=== PATIENT | female | born 1950 | race Caucasian/White ===

== ENCOUNTER → 2025-02-12 | Outpatient (CLI) | payer OTHER, SELFPAY ==
--- NOTE | 2025-02-12 12:48 | RAD_ITS ---
EXAM: X-ray lumbar spine 2 or three views CLINICAL HISTORY: Back pain COMPARISON: None available TECHNIQUE: AP and lateral views of the lumbosacral spine FINDINGS: 5 non rib-bearing lumbar vertebral type bodies. Moderate appearing leftward curvature of the lumbar spine with apex at L2-3. No fracture or malalignment. A oyuv-[id number] appearing disc space narrowing suggested at L4-5. Surgical clips are seen over the right abdomen possible previous cholecystectomy, correlate with history. RAD/Lumbar Spine 2 or 3 Views IMPRESSION: Moderate appearing leftward curvature of the lumbar spine with apex at L2-3. No fracture or malalignment. A [id number]-[id number] appearing disc space narrowing suggested at L4-5. Reading Location: [id number]
== END | disposition home or self-care (01) ==
LOC: RAD 12:42
PROVIDERS: Referring Provider Anesthesiology Pain Medicine; Visit Provider Anesthesiology Pain Medicine
DX: M54.9 Dorsalgia, unspecified (principal)
CPT/HCPCS: 72100

== ENCOUNTER 2025-05-02 09:30 | Outpatient (RCR) | payer MEDICARE, SELFPAY ==
--- NOTE | 2025-02-24 19:43 | HP.PTEVAL ---
Patient's Visit Information Visit Information Visit Information: KOBE BLEVINS is a 74 year old F referred to Physical Therapy by Dr. Betsy Orozco MD with a diagnosis of BACK PAIN. Date of Evaluation: 02/24/25 Physical Therapist: Supriya Mena PT, Cert MDT Visit Plan Frequency: 2-3x /Week Duration: 4-6 Weeks Plan: POSTURE CORRECTION/STRENGTHENING, INSTRUCTION IN APPROPRIATE BODY MECHANICS AND ACTIVITY MODIFICATIONS. DLS STARTING WITH A NEUTRAL SPINE PROGRESSING ROM TOLERATED. JUAN LE ROM, STRETCHING AND STRENGTHENING. HEP INSTRUCTION. Subjective Subjective: Work/Leisure: RETIRED. Present symptoms: JUAN LOW BACK PAIN R>L. Present since: CHRONIC - YEARS BUT INCREASED LAST SUMMER WITH GARDENING. Pain Scale: WORST 8/10, LEAST 2/10 Currently: 2/10 Is it getting better, worse or staying the same: STAYING THE SAME Commenced as a result of: NO APPARENT REASON Symptoms at onset: LOW BACK PAIN. Worse: PROLONG STANDING, WALKING, LYING, VACUUMING, MOPPING AND SWEEPING Better: HEATING, IBUPROFEN, ASPIRIN AND SITTING IN RECLINER Disturbed sleep: YES Previous history/Previous treatment: SI JT INJECTIONS APRIL AND AUG 2024. RADIOFREQUENCY TREATMENT AUG 2024. INCREASED BACK PAIN WITH PHYSICAL THERAPY 2023 FOR R WRIST AND L KNEE AFTER FALL MAY 2024. NO BACK SURGERY. SELF TREATMENT OF BACK PRIOR TO 2023. Treatment this episode: [place] DR. OROZCO 02/20/25 WITH SOME BENEFIT. Coughing/sneezing/straining: NO EFFECT ON PAIN THAT PATIENT IS AWARE OF. Gait: TIME AND DISTANCE LIMITED DUE TO BACK PAIN. [place]OB[place]Y IN THE [place] - USING [facility] IN THE [facility] TO WALK DOG DOWN THE [place] STARTING THIS WINTER. Bowel or Bladder Dysfunction: NO Accidents: FELL IN BATH TUB MAY 2024 AND HURT R WRIST AND L KNEE TREATED WITH PHYSICAL THERAPY IN [place] 20[place]. Unexplained weight loss: NO Imaging: RECENT LUMBAR X-RAY [facility]: IMPRESSION: Moderate appearing leftward curvature of the lumbar spine with apex at L2-3. No fracture or malalignment. A tsuu-fy-[id number] appearing disc space narrowing suggested at L4-5. PMH/Recent major surgery: HTN, HYPOTHYROIDISM Objective Objective: Sitting/Standing Posture: STANDING: R SHLD LEVEL LOWER THAN L AND R ILIAC CREST HIGHER THAN L. ANTERIOR PELVIC TILT. SLOUCHED IN SITTING. Other Observations: INDEP GAIT INTO PT WITHOUT ANY AD OR LOB BUT GAIT AND TRANSFERS ARE SLOW AND GUARDED. ABLE TO TRANSFER INDEP;LY FROM SIT TO STAND WITHOUT UE ASSIST BUT DIFFICTULT AND PATIENT C/O INCREASED LBP. Sensory deficit: JUAN LE LIGHT TOUCH SENSATION GROSSLY INTACT AND SYMMETRICAL ROM deficit: JUAN LE HIP FLEXOR, HS AND CALF TIGHTNESS. Motor deficit: R HIP 4-/5, KNEE 4/5, ANKLE 5/5. L HIP 4/5, KNEE 5/5, ANKLE 5/5. Reflexes: UNABLE TO ELICIT JUAN LE DTR'S. Dural Signs: POSITIVE R LE AND NEGATIVE L LE. Lumbar mvmt loss: flex - MOD ext - MELVINA R SG - MELVINA L SG - MOD Core strength: POOR Palpation: NO ACUTE TENDERNESS WITH PALPATION OF LOWER THOROCIC, LUMBAR OR HIP REGIONS WITH LIGHT PALPATION TODAY. Balance/Special Test Scores Oswestry Low Back Score: 22 Goals Goal 1:: DECREASE C/O LOW BACK PAIN BY AT LEAST 50% TO EASE ADL'S Goal Time Frame: 4-6 Weeks Goal 2:: IMPROVE LIFTING, WALKING, SITTING, STANDING, SLEEP, TRAVEL AND HOMEMAKING FUNCTION WITH AT LEAST A 5 POINT IMPROVEMENT IN LUMBAR OSWESTRY SCORE. Goal Time Frame: 4-6 Weeks Goal 3:: INSTRUCT IN PROPHYLAXIS. Goal Time Frame: 4-6 Weeks Rehabilitation Potential Physical Therapy Diagnosis: CORE AND LE STIFFNESS AND WEAKNESS Rehabilitation Potential: Good Anticipated Interventions Patient/Client Instruction: Educate patient on: Condition, Plan of Care and Risk Factors For the Purpose of:: To improve self management Therapeutic Exercise to Include: Strength training, Body mechanics, Neuromotor development, In an aquatic setting and Dynamic Lumbar Stabilization For the Purpose of:: To decrease pain, To improve muscle performance and motor function, To increase tolerance to activity/condition/position, To improve ability of physical actions for home/community/work/leisure, To improve gait and locomotor functions and To improve self management Cryotherapy (ice pack, ice massage): Yes Thermo therapy (hot pack): Yes Ultrasound (thermal/non thermal): Yes For the Purpose of:: To decrease pain, To decrease swelling/inflammation and To improve nutrient delivery to tissue Text: Thank you for the opportunity to evaluate your patient. For Medicare and Medicare HMO plans, please review the plan of care and approve it. It will need to be FAXED BACK to us at [phone] for Medicare purposes. For Medicare only, by signing this I certify the plan of care. Please let me know if there are questions or concerns regarding this plan of care. Physician Signature: Date:
--- NOTE | 2025-05-02 10:32 | HP.PTDCSUM ---
Discharge Summary D/C summary: It has been my pleasure to treat KOBE BLEVINS referred by Dr. Betsy Orozco MD, with the diagnosis of BACK PAIN for a total of 7 visit(s). Discharge Date: 05/02/25 Please see the following information for a summary of their discharge status. Subjective Subjective: PATIENT REPORTS SHE THINKS THE US HELPED LAST VISIT. PATIENT REPORTS SHE HAS BEEN AWAY A LOT AND HASN'T ALWAYS HAD TIME TO DO HER HEP. SHE REPORTS WHEN SHE DOES DO THEM THEY ARE CHALLENGING BUT NOT PAINFUL OR TOO HARD. SHE REPORTS SHE FEELS BETTER AFTER SHE DOES SOME OF THEM. Pain LOW BACK: Pain Intensity (Out of 10): 2 Overall Improvement % Improvement: 50 Objective Objective/Function: PATIENT WAS SEEN TODAY FOR RE-ASSESSMENT OF PROGRESS TOWARD THE SET PT GOALS AND THE NEED FOR FURTHER PHYSICAL THERAPY VS READINESS FOR DISCHARGE. THIS PATIENT IS MAKING SLOW PROGRESS WITH PT AND IS A GOOD CANDIDATE TO CONTINUE PT BUT SHE WOULD LIKE TO STOP FOR NOW AND CONTINUE WITH HEP INDEP'LY UNTIL FOLLOW UP WITH DR. OROZCO IN MAY. WE WILL GO AHEAD AND DISCHARGE HER AT THIS TIME. UPON EXAM TODAY: THIS PATIENT AMBULATES INDEP'LY INTO PT TODAY WITHOUT ANY AD'S OR LOB. SHE IS REPORTING LESS PAIN OVER-ALL TODAY AND RELATES IT AT LEAST PARTIALLY TO THE WEATHER. Motor deficit: R HIP 4-/5, KNEE 4/5, ANKLE 5/5. L HIP 4/5, KNEE 5/5, ANKLE 5/5. Dural Signs: NEGATIVE JUAN LE'S. Lumbar mvmt loss: flex - MOD ext - MOD R SG - MOD L SG - MOD Goals Goal 1:: DECREASE C/O LOW BACK PAIN BY AT LEAST 50% TO EASE ADL'S Goal Progress: Goal Met Goal 2:: IMPROVE LIFTING, WALKING, SITTING, STANDING, SLEEP, TRAVEL AND HOMEMAKING FUNCTION WITH AT LEAST A 5 POINT IMPROVEMENT IN LUMBAR OSWESTRY SCORE. Goal Progress: Progressing Goal 3:: INSTRUCT IN PROPHYLAXIS. Goal Progress: Goal Met Plan Plan: D/C D/C Information d/c sentence: If there are questions or concerns regarding this patient's physical therapy, please feel free to call me at [phone]. Thank you for the referral of this patient. Sincerely, Supriya Mena, PT, Cert MDT Balance/Gait/Functional tests Balance/Special Test Scores Oswestry Low Back Score: 20 Improvement % Improvement: 50
== END 2025-05-02 19:00 | disposition home or self-care (01) ==
LOC: PT 09:30
PROVIDERS: PCP Internal Medicine; Referring Provider Anesthesiology Pain Medicine; Visit Provider Anesthesiology Pain Medicine
DX: M54.9 Dorsalgia, unspecified (principal)
CPT/HCPCS: 97035; 97162; 97530